=== PATIENT | male | born 1935 | race Caucasian/White ===

== ENCOUNTER 2019-06-21 20:31 | Inpatient (IN) | payer MEDICARE, BC, OTHER ==
[2019-06-21] MEDS ORDERED: Propofol 1,000 MG/100 ML VIAL IV ONE (22:48)
[2019-06-21] MEDS ORDERED: Acetaminophen 650 MG Suppository PR PRN (23:08)
[2019-06-21] MEDS ORDERED: Sodium Chloride 0.9% 1,000 ML IV SCH (23:30)
[2019-06-21 23:32] LABS: Actual Bicarbonate (HCO3a) 19.5 mEq/L (22-28); Base Excess (BEa) -4.3 mEq/L (-2.0 to +3.0); CO2 Tension 32.2 mmHg (35.0-45.0); Calcium, Ionized 1.18 mmol/L (1.12-1.30); Carboxyhemoglobin (COHb) 0.3 gm% (0.0-3.0); Hemoglobin (Hb) 14.8 g/dL (14.0-18.0); O2 Tension (PaO2) 361.3 mmHg (> 60.0); Potassium - ABG Lab 4.57 mmol/L (3.70-5.30)
[2019-06-21 23:35] LABS: Puncture Site RBR
[2019-06-22] MEDS ORDERED: Dextrose 5 %-0.45 % NaCl 1,000 ML IV SCH (00:15)
[2019-06-22] MEDS ORDERED: Lorazepam 2 MG/ML VIAL SLOW IVP PRN (00:43)
[2019-06-22] MEDS ORDERED: Morphine 2 MG/ML SYRINGE SLOW IVP PRN (00:43)
[2019-06-22] MEDS ORDERED: DISCONTINUE PREVIOUS NARCOTIC PAIN MEDICATIONS AND BENZODIAZEPINES FS SCH (00:43)
[2019-06-22] MEDS ORDERED: fentaNYL Citrate/PF 2,000 MCG in Sodium Chloride 0.9% 60 ML IV SCH (00:43)
[2019-06-22] MEDS ORDERED: Propofol BOLUS 1,000 MG/100 ML VIAL IV PRN (00:43)
[2019-06-22] MEDS ORDERED: Fentanyl BOLUS 250 ML IVPB PRN (00:43)
--- NOTE | 2019-06-22 00:48 | HP ---
CHIEF COMPLAINT: Respiratory failure. HISTORY OF PRESENT ILLNESS: Mr. Díaz is an 84-year-old male, who was brought to the emergency room with low oxygen saturation. Oxygen saturation was reported in the 70s. The patient was intubated, mechanically ventilated. The patient lives in custodial, where several patients have been tested positive for new coronavirus 2019. On workup in the emergency room, the patient was found to be in acute renal failure with a creatinine of more than 4, hyperkalemic, hypernatremic with a sodium of 158. CT was done without contrast, which shows bilateral ground-glass opacities, atypical/viral pneumonia cannot be excluded. Septic workup done. The patient is being admitted to the intensive care unit for further management. PAST MEDICAL HISTORY: 1. Hypertension. 2. Alzheimer dementia. 3. CVA. 4. Asthma. 5. Prostatic hypertrophy. 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 FAMILY HISTORY: Unknown. REVIEW OF SYSTEMS: Unable to obtain. The patient is intubated, mechanically ventilated. ALLERGIES: THE PATIENT IS ALLERGIC TO ACETAMINOPHEN, AMOXICILLIN, CIPRO, DONEPEZIL, HYDROCODONE, PENICILLIN, PHENYTOIN, AND QUINOLONES. PHYSICAL EXAMINATION: GENERAL: The patient is intubated, sedated. VITAL SIGNS: Blood pressure 100/60, temperature 96.2, heart rate is 102, respiratory rate is 20. HEAD AND NECK: Normocephalic, atraumatic. NECK: Supple. CHEST: Bilateral breath sounds. HEART: S1, S2. Regular. ABDOMEN: Soft. Bowel sounds present. NEURO: Intubated, sedated, unable to assess. EXTREMITIES: No clubbing or cyanosis. LABORATORY DATA: As mentioned above in the history of present illness. WBC count is 9.2. Potassium 5.7, sodium 158, AST 171, ALT 97. CT of the chest as mentioned above in history of present illness. CT of the brain, no acute finding. ASSESSMENT: 1. Acute hypoxic respiratory failure. 2. Pneumonia, suspected viral. 3. Acute renal failure. 4. Acute hypernatremia. 5. Acute hyperkalemia. 6. Alzheimer dementia. 7. History of hypertension. 8. History of cerebrovascular accident. PLAN: 1. Admit to ICU. 2. Continue full ventilator support. 3. Septic workup including viral panel was done in the ED. 4. Isolation precautions, contact and droplet. 5. IV fluid hydration. 6. Place an OG tube and start on free water. 7. Monitor kidney function and urine output. 8. Empiric IV antibiotics for now. 9. Business Process Representative/Pulmonary consulted for evaluation and further management. 10. Qi Specialist consulted for evaluation and further management. 11. GI and DVT prophylaxis as appropriate. 12. The patient's condition is critical. 13. The case discussed with patient's daughter on the phone. 14. The patient's condition is critical. 15. Expected length of stay, 3 midnights or more. Job ID: [id number]
[2019-06-22] MEDS ORDERED: Ventilator Sedation Protocol 1 EACH FS SCH (01:15)
[2019-06-22] MEDS ORDERED: cefTRIAXone\\ROCEPHIN 2 GM in Sodium Chloride 0.9% 100 ML IVPB SCH (02:00)
[2019-06-22] MEDS ORDERED: Sodium Chloride 0.9% 500 ML IVPB SCH (02:30)
[2019-06-22] MEDS: Azithromycin 500 MG in Sodium Chloride 0.9% 250 ML 250 ML IVPB SCH (02:31)
[2019-06-22 04:12] LABS: ALT (SGPT) 89 U/L (8-55); AST (SGOT) 256 U/L (5-34); Albumin 2.9 g/dL (3.4-4.8); Alkaline Phosphatase 88 U/L (40-110); Anion Gap 24 mmol/L (10-20); BUN (Urea Nitrogen) 81 mg/dL (8.4-25.7); Bilirubin, Total 0.3 mg/dL (0.2-1.2); Calc. Creatinine Clearance 13 mL/min (70-130); Calcium 8.6 mg/dL (7.8-10.44); Carbon Dioxide 21 mmol/L (23-31); Chloride 118 mmol/L (98-107); Estimated GFR-MDRD 16; Globulin 2.7 g/dL (2.4-3.5); Glucose 78 mg/dL (83-110); Potassium 4.5 mmol/L (3.5-5.1); Protein, Total 5.6 g/dL (5.8-8.1); Sodium 158 mmol/L (136-145)
[2019-06-22 04:28] LABS: Band 39 % (5-11); Hemoglobin 13.9 g/dL (14.0-18.0); Lymphocytes 11 % (21-51); MDiff Complete? YES; Mean Corpuscular HGB CONC 31.4 g/dL (32.0-36.0); Mean Platelet Volume 10.7 fL (7.4-10.4); Monocytes 2 % (0-10); Neutrophil 48 % (42-75); Platelet Count 145 thou/uL (130-400); RBC Distribution Width 14.3 % (11.5-14.5); Red Blood Cell (RBC) Count 4.33 mill/uL (4.70-6.10); White Blood Cell (WBC) Count 11.2 thou/uL (4.8-10.8)
[2019-06-22] MEDS ORDERED: Sodium Chloride 0.9% 1,000 ML IV SCH (05:45)
[2019-06-22 07:04] LABS: Actual Bicarbonate (HCO3a) 16.9 mEq/L (22-28); Base Excess (BEa) -4.9 mEq/L (-2.0 to +3.0); Calcium, Ionized 1.08 mmol/L (1.12-1.30); Carboxyhemoglobin (COHb) 0.3 gm% (0.0-3.0); Hemoglobin (Hb) 12.3 g/dL (14.0-18.0); O2 Tension (PaO2) 62.1 mmHg (> 60.0); Potassium - ABG Lab 3.78 mmol/L (3.70-5.30); pH, Arterial 7.48 (7.35-7.45)
[2019-06-22] MEDS ORDERED: Lactated Ringer's 1,000 ML IV SCH (08:45)
[2019-06-22] MEDS ORDERED: Vancomycin 1 GM in Premix Bag 1 BAG IVPB SCH (08:45)
--- NOTE | 2019-06-22 08:46 | PDOC.EVN ---
Event Note - Event Note Event Note: Inherited patient this morning. Intubated and sedated. Awaiting for official records from [place]. Review CT head and lungs with Dr. Graham. CT lung remarkable for mild left ground glass opacities and right lower lobe opacity, may be due to aspiration. Patient also has TU c/w with prerenal etiology, macrocytosis, AST/ALT>2; In context of aforementioned and dementia, working diagnosis aspiration pneumonia, possibly alcoholic hepatitis, though COVID not ruled out at this point, especially due to possible exposure in skilled nursing with known positive cases. #Aspiration pneumonia/pneumonitis #Acute hypoxic respiratory failure vancomycin and cefepime started, continue azithromycin for atypical coverage/ COVID (limited evidence) pending records from [place] #Dehydration #chronic Hypernatremia -providing hypotonic IVF -recheck BMP at noon; adjust rate to correct at 10meq/24hr to avoid overcorrection and cerebral edema / undercorrection in context of improving TU and changing water losses; if rate achieved can spread out sodium checks
[2019-06-22 09:00] LABS: CO2 Tension 23.1 mmHg (35.0-45.0); Puncture Site LRA
[2019-06-22] MEDS ORDERED: Heparin 5,000 UNITS/ML VIAL SC SCH (09:00)
[2019-06-22] MEDS ORDERED: Prevnar 13-Val Conj/PF 0.5 ML SYRINGE IM ONE (09:00)
[2019-06-22] MEDS ORDERED: FLU VACC TS2019-20(65YR UP)/PF 180 MCG/0.5 ML SYRINGE IM ONE (09:00)
[2019-06-22] MEDS ORDERED: Famotidine/PF 20 mg/2ml Vial SLOW IVP SCH (09:00)
[2019-06-22 09:01] LABS: ALV-art Gradient 194.225 (0-20)
[2019-06-22] MEDS ORDERED: methylPREDNISolone Sod Succ 40 MG VIAL IVP SCH (09:15)
[2019-06-22] MEDS: Dextrose 5% in Water 1,000 ML IV SCH (09:42)
[2019-06-22] MEDS: methylPREDNISolone Sod Succ 40 MG VIAL IVP SCH (09:43)
[2019-06-22] MEDS: Cefepime 1 GM in Sodium Chloride 0.9% 100 ML IVPB SCH (09:43)
[2019-06-22] MEDS: Heparin 5,000 UNITS/ML VIAL SC SCH ×2 (09:44→21:29)
[2019-06-22] MEDS: Famotidine/PF 20 mg/2ml Vial SLOW IVP SCH (09:44)
[2019-06-22 11:21] LABS: Bilirubin Negative (Negative); Blood, Urine 3+ (Negative); Clarity Extra Turbid (Clear); Glucose, Urine (Dipstick) 30 mg/dL (Negative); Leukocyte 250 Leu/uL (Negative); Nitrite Negative (Negative); Protein, Urine (Dipstick) 200 mg/dL (Neg-Trace); Squamous Epithelial 0-3 HPF (0-3); Urobilinogen Normal mg/dL (Less than 2); WBC/HPF Greater than 50 HPF (0-3)
[2019-06-22 11:25] LABS: Bacteria/HPF 2+ HPF (None Seen)
[2019-06-22 11:28] LABS: Legionella Urinary Ag Negative (Negative); Strep pneumo Urine Ag NEGATIVE (NEGATIVE)
[2019-06-22 11:57] LABS: Creatinine, Urine 232.42 mg/dL (63-166)
--- NOTE | 2019-06-22 15:49 | CON ---
DATE OF CONSULTATION: SERVICE: Renal Medicine. HISTORY OF PRESENT ILLNESS: Mr. Díaz is an 84-year-old halfway patient/assisted living patient, who was admitted for an acute respiratory failure. He was noted to be hypoxemic and currently on ventilator support. He was admitted with a possible atypical/viral pneumonia. Workup is currently being done. He is being ruled out for Coronavirus infection. Please note, a CT scan of the chest without contrast was done, which showed bilateral ground-glass opacities. We are now being consulted for his acute kidney injury. The initial creatinine at [facility] showed an elevated creatinine of more than 4. Repeat creatinine today showed it was slightly improved at 3.6. He is currently receiving IV hydration. We are here for further evaluation of this acute kidney injury. REVIEW OF SYSTEMS: Not obtainable except based on the history. The patient has been febrile and has been having cough. He has a history of exposure to some people in the halfway, who are diagnosed with COVID-19. PAST MEDICAL HISTORY: Includes dementia, status post multi-infarct dementia, asthma, BPH, hypertension, hyperlipidemia, ? of seizure disorder, status post TIA, CAD, history of anxiety, history of CHF from diastolic dysfunction, status post pneumonia. PAST SURGICAL HISTORY: Status post back surgery, status post EPIC RADIANT ANALYST shunt placement, status post nasal surgery, status post vasectomy, status post prostate biopsy, and status post tonsillectomy. FAMILY HISTORY: Positive for family history of dementia. Breast cancer, mother. One sister with asthma. SOCIAL HISTORY: Currently, no smoking. No ethanol use. No IV drug use. ALLERGIES: INCLUDE: 1. ACETAMINOPHEN. 2. AMOXICILLIN. 3. CIPRO. 4. DONEPEZIL. 5. HYDROCODONE. 6. PENICILLIN. TRAUMA: None. IMMUNIZATION: Up-to-date. HOSPITALIZATIONS: Please see past medical history. PHYSICAL EXAMINATION: VITAL SIGNS: Blood pressure 125/76, heart rate 92, respiratory rate 21, O2 saturation 100%. GENERAL: Noted to be sedated and intubated on ventilator support. SKIN: Adequate turgor. HEENT: He has had pinkish conjunctivae. Anicteric sclerae. NECK: No neck mass. No carotid bruits. No JVD. CHEST: No deformities. LUNGS: Clear. Decreased breath sounds. HEART: Normal sinus rhythm. No murmur. No gallops. No rubs. ABDOMEN: Globular, soft, and nontender. No masses. EXTREMITIES: No edema. No deformities. NEUROLOGIC: Sedated and intubated on ventilator support. MEDICATIONS: 1. Cefepime 1 g IV daily. 2. Dextrose - D5 water at 100 mL/hour. 3. Famotidine 20 mg IV daily. 4. Heparin 5000 units subcutaneously b.i.d. 5. Methylprednisolone 20 mg IV daily. 6. Propofol drip. 7. Status post vancomycin. Currently, on hold. LABORATORY DATA: Laboratories of June 22, 2019: White count 11.2, hemoglobin 13.9. Sodium 158, potassium 4.5, chloride 118, carbon dioxide 21, BUN 81, creatinine 3.64, glucose 78, calcium is 8.6, AST 256, ALT 89, albumin 2.9. Urinalysis; urine sodium 39, urine creatinine 232, specific gravity 1.024, protein is 200, rbc 11 to 20, wbc greater than 50, granular cast [address] scan of the chest showed ground-glass opacities. ASSESSMENT AND PLAN: 1. Acute kidney injury - initially, it was felt that this is a hemodynamically-mediated renal dysfunction. He did have some improvement with volume repletion. However, the concern is that the urine sediment was fairly active showing numerous pigmented granular casts suggesting an acute tubular necrosis with this patient. Management is essentially supportive. Continue IV hydration as long as he will tolerate it. If the renal function will further worsen or he goes to volume overload, we may need to initiate hemodialysis. However, due to his comorbid problems and history of dementia, this patient might not be an ideal candidate for dialytic intervention. We will discuss this with the daughter. 2. Sepsis/pneumonia - on empiric IV antibiotics. Serological workup for the Coronavirus has been done. Influenza has been reported as negative. Legionella has also been ruled out. 3. Hematuria/granular cast. We will also rule out for any possibility of acute vasculitis with this patient. WILLIE and ANCA have also been ordered. Overall, prognosis with this patient due to his advanced age and multiple comorbid problems is quite poor. Overall, agree with current management. Job ID: [id number]
--- NOTE | 2019-06-22 16:10 | CON ---
DATE OF CONSULTATION: 06/22/2019 SERVICE: Pulmonary Medicine. REASON FOR CONSULTATION: ICU patient. HISTORY OF PRESENT ILLNESS: The patient is an 84-year-old male with past medical history significant for dementia and LAWN CARETAKER shunt. Ultimately, his [facility] had an outbreak of COVID. It is my understanding that he is across the door from the index case there that already earlier this week. Either way, it appears that he is poorly interactive and perhaps even bedbound. He presents to the hospital with altered mentation. He was intubated, though he did not have significant hypoxic respiratory failure. He cannot provide any additional elements of the history at this point. He was obtunded from the time presentation, so we have no presenting illness. 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 2. Hypertension. 3. History of CVA. 4. Asthma versus COPD. 5. Benign prostate hyperplasia. PAST SURGICAL HISTORY: LAWN CARETAKER shunt. FAMILY HISTORY: Unknown. SOCIAL HISTORY: Negative for current alcohol, tobacco, or illicit drug use. It does not appear that the patient has very good functional status. REVIEW OF SYSTEMS: Unobtainable. ALLERGIES: ACETAMINOPHEN, AMOXICILLIN, DONEPEZIL, CIPRO, HYDROCODONE, PENICILLIN, PHENYTOIN, AND QUINOLONES. MEDICATIONS: His inpatient medications were reviewed. Multiple updates were made at this time. PHYSICAL EXAMINATION: VITAL SIGNS: Afebrile. Pulse rate 89, blood pressure 120/81, respirations are 22, saturation 100%, currently on 30% FiO2 and a PEEP of 5. GENERAL: The patient is intubated and sedated. HEENT: Normocephalic and atraumatic. Sclerae white. Conjunctivae pink. Oral mucosa is moist without lesions. LUNGS: Good air entry bilaterally. There is a slightly prolonged expiratory phase. I do not hear any crackles or wheezing present. HEART: Normal rate, regular. ABDOMEN: Soft, nontender, and nondistended. Bowel sounds are positive. MUSCULOSKELETAL: No cyanosis or clubbing. There is no pitting. Skin tenting is present throughout. NEUROLOGIC: Grossly nonfocal. He does demonstrate a coarse tremor. This is active contraction in a rotary fashion. LABORATORY DATA: WBC 11.2, hemoglobin 13.9, and platelets are 145,000. Band count is 39% on top of 48% neutrophils. PH 7.48, pCO2 of 23, PO2 of 62 corresponding to a saturation 91% while wearing 40% FiO2 and PEEP of 5. Sodium 158, chloride 118, bicarb 21. Anion gap 24, creatinine 3.64. AST and ALT are elevated. It is my understanding that creatinine and LFTs are downtrending. Bacteria 2+ with positive leukocyte esterase. Nitrites were positive at outside Hospital. Urine is positive for 3+ blood. Legionella and strep pneumoniae antigens are unremarkable. ASSESSMENT: 1. Severe sepsis. 2. Profound dehydration. 3. Acute kidney injury. 4. Status full urinary tract infection. 5. Healthcare acquired pneumonia. 6. COVID exposure. ASSESSMENT: The patient's COVID was unremarkable at the outside hospital. He does not have any infiltrates on the CT scan. I believe that would happen if the patient had significant dehydration that developed and he had lack of access to nutrition and water. He has already received 2 L of fluid. His blood pressures are now marginal. If he needs an additional L, it will be provided. His free water deficit is over 4 L. He does not have an NG tube or an OG tube currently. We will provide him with a D5 water at 100 mL/h. Hopefully over the next 24 to 48 hours, we will get closer to our goal of 140. Antibiotics will be broadened out to cover for healthcare acquired organisms. Now that the COVID is negative, azithromycin will be interrupted. The urine cultures are currently pending, as are two blood cultures from outside hospital. Hopefully, we will be able to liberate him from mechanical ventilation once his mentation allows. Critical Care will follow. CRITICAL CARE TIME: 30 minutes. Job ID: [id number]
[2019-06-22] MEDS: Albumin 25% 25 GM/100 ML BOT IVPB SCH (16:57)
[2019-06-22] MEDS: Propofol 1,000 MG/100 ML VIAL IV PRN (16:57)
[2019-06-22] MEDS ORDERED: Dextrose 5% in Water 1,000 ML IV PRN (22:16)
[2019-06-23] MEDS: Azithromycin 500 MG in Sodium Chloride 0.9% 250 ML 250 ML IVPB SCH ×2 (00:01→20:19)
[2019-06-23] MEDS: Albumin 25% 25 GM/100 ML BOT IVPB SCH ×5 (00:01→22:02)
[2019-06-23] MEDS: Dextrose 5% in Water 1,000 ML IV SCH (00:02)
[2019-06-23 04:00] LABS: CRP (Inflammatory) 22.45 mg/dL (= or < 0.5); Magnesium 3.1 mg/dL (1.6-2.6); Phosphorus 3.5 mg/dL (2.3-4.7)
[2019-06-23 04:16] LABS: Band 38 % (5-11); Hemoglobin 11.5 g/dL (14.0-18.0); Lymphocytes 10 % (21-51); MDiff Complete? YES; Mean Corpuscular HGB CONC 33.3 g/dL (32.0-36.0); Mean Platelet Volume 11.5 fL (7.4-10.4); Metamyelocyte 1 % (0-0); Neutrophil 51 % (42-75); Platelet Count 95 thou/uL (130-400); Platelet Morphology Comment Appears Decreased; RBC Distribution Width 14.3 % (11.5-14.5); White Blood Cell (WBC) Count 14.8 thou/uL (4.8-10.8)
[2019-06-23] MEDS: Propofol 1,000 MG/100 ML VIAL IV PRN (05:14)
[2019-06-23 06:59] LABS: ALT (SGPT) 106 U/L (8-55); AST (SGOT) 258 U/L (5-34); Albumin 3.5 g/dL (3.4-4.8); Alkaline Phosphatase 69 U/L (40-110); Anion Gap 23 mmol/L (10-20); BUN (Urea Nitrogen) 83 mg/dL (8.4-25.7); Bilirubin, Total 0.4 mg/dL (0.2-1.2); Calc. Creatinine Clearance 13 mL/min (70-130); Calcium 7.8 mg/dL (7.8-10.44); Carbon Dioxide 15 mmol/L (23-31); Chloride 118 mmol/L (98-107); Estimated GFR-MDRD 16; Globulin 2.2 g/dL (2.4-3.5); Glucose 109 mg/dL (83-110); Potassium 3.9 mmol/L (3.5-5.1); Protein, Total 5.7 g/dL (5.8-8.1); Sodium 152 mmol/L (136-145)
--- NOTE | 2019-06-23 07:27 | OP ---
DATE OF PROCEDURE: 06/22/2019 Emergency re-intubation busted, endotracheal tube cuff leaked. The patient is in a COVID-19 precaution. Full body protection was used, goggles, mask, and outerwear. The flexible Ambu disposable bronchoscope was used with a 7.5 endotracheal tube placed about it. A bite block was placed in. Back of the throat was suctioned and lavaged until clear. There was some relatively large amount of thick secretions. The old endotracheal tube was removed. The #7.5 new tube was placed above the vocal cords, well above the malou. The patient was bagged. Cuff was inflated. The area was reinspected again and there was no endobronchial disease or blood or pus seen. The patient was connected to volume-cycled respirator. Job ID: [id number]
--- NOTE | 2019-06-23 07:50 | PDOC.HOSPP ---
- Subjective Encounter Date: 06/23/19 Encounter Time: 07:30 Subjective: Overnight, confirmed to be COVID positive. This morning, ventilating well on CPAP but remains poorly responsive per ICU. Will attempt to extubate if responsiveness improves otherwise obtain EEG. - Objective Vital Signs & Weight: Vital Signs (12 hours) Temp Pulse Resp Pulse Ox 06/23/19 07:39 111 H 06/23/19 06:00 20 06/23/19 04:00 99.2 F 21 H 06/23/19 02:00 21 H 06/23/19 01:47 79 06/23/19 00:00 99.5 F 20 06/22/19 22:19 89 06/22/19 22:00 20 06/22/19 20:00 99.5 F 22 H 100 Weight Admit Weight 136 lb Weight 136 lb 3.931 oz Most Recent Monitor Data Heart Rate from ECG 75 NIBP 152/89 NIBP BP-Mean 110 Respiration from ECG 20 SpO2 100 I&O: 06/22/19 06/23/19 06/24/19 06:59 06:59 06:59 Intake Total 2224 2818.8 Output Total 308 2280 Balance 1916 538.8 Result Diagrams: 06/23/19 03:35 06/23/19 03:34 Additional Labs: Accuchecks 06/23/19 05:28 POC Glucose 79 Hospitalist ROS - Review of Systems ROS unobtainable: due to mental status (intubated and sedated) - Medication Medications: Active Medications Generic Name Dose Route Start Last Admin Trade Name Freq PRN Reason Stop Dose Admin Famotidine 20 mg 06/22/19 09:00 06/22/19 09:44 Pepcid SLOW IVP 20 mg DAILY WENDI Administration Heparin Sodium (Porcine) 5,000 units 06/22/19 09:00 06/22/19 21:29 Heparin SC 5,000 units BID WENDI Administration Azithromycin 500 mg/ Sodium 250 mls @ 250 mls/hr 06/22/19 01:00 06/23/19 00: 01 Chloride IVPB 250 mls 0100 WENDI Administration Cefepime HCl 1 gm/ Sodium 100 mls @ 200 mls/hr 06/22/19 10:00 06/22/19 09:43 Chloride IVPB 100 mls 1000 WENDI Administration Methylprednisolone Sodium Succinate 20 mg 06/23/19 09:00 06/22/19 09:43 Solu-Medrol IVP 20 mg DAILY WENDI Administration Propofol 1,000 mg 06/22/19 00:43 06/23/19 05:14 Diprivan IV 07/22/19 00:43 1,000 mg INF PRN Administration TO ACHIEVE GOAL RASS Protocol - Exam General - other findings: sedated Eye: PERRL, anicteric sclera ENT: normocephalic atraumatic Neck: no JVD Heart: RRR, no murmur, no gallops, no rubs, normal peripheral pulses Respiratory: CTAB, no wheezes, no rales, no ronchi, normal chest expansion Respiratory - other findings: on CPAP 5 Gastrointestinal: soft, non-tender, non-distended, normal bowel sounds Extremities: no edema Psychiatric - other findings: sedated Hosp A/P - Plan #COVID pneumonia #aspiration pneumonia -inflammatory markers grossly elevated; procalcitonin elevated. more c/w bacterial pneumonia however superimposed COVID likely considering positive test and ground glass opacities with bibasilar airspace disease, which is commonly found in COVID and other viral pneumonias -started hydroxychloroquine and azithromycin as per MICU -continue cefepime and vancomcyin; will discuss adding clindamycin for anaerobic coverage with ICU -daily SBTs #TU -ATN based on urine studies; likely due to sepsis -nephrology onboard -continue strict I/O, IVF supplementation #dehydration #chronic hypernatremia -improving, currently 152 -continue IVF and daily BMP remaining management unchanged Poor prognosis; Palliative team and ICU discussed with family.
--- NOTE | 2019-06-23 07:52 | PRG ---
DATE OF SERVICE: 06/23/2019 SERVICE: Pulmonary Medicine. INTERVAL HISTORY: The patient is doing fine overnight from respiratory standpoint. He has been weaned down to room air. Otherwise, there has been no interval change to his condition. He cannot provide any additional elements of the history. Currently, he is on sedation. That being said, he continues to be poorly responsive. With noxious stimuli to the left upper extremity, he seems to grimace. Outside of that, he has some upper motor neuron signs. PHYSICAL EXAMINATION: VITAL SIGNS: Afebrile, pulse 75, blood pressure 152/89, respirations 20, and saturation 100%, currently on 21% FiO2 delivered via ventilator with a PEEP of 5. GENERAL: The patient is intubated and sedated. HEENT: Normocephalic and atraumatic. Sclerae white. Conjunctivae pink. Oral mucosa is moist without lesions. LUNGS: Decent air entry. There is a slightly prolonged expiratory phase, but I do not hear any crackle or wheezing present. HEART: Normal rate, regular. ABDOMEN: Soft, nontender, and nondistended. Bowel sounds are positive. MUSCULOSKELETAL: No cyanosis or clubbing. There is no pitting in the bilateral lower extremities. NEUROLOGIC: Grossly nonfocal. LABORATORY DATA: WBC 14.8, hemoglobin 11.5, platelets 95,000 and downtrending. Neutrophil count is 51% on top of 38% bands. PH 7.48, pCO2 of 23, pO2 is 62, corresponding to saturation 91%. Sodium is gently downtrending to 152. Chloride 118, anion gap 23. Creatinine is gently up-trending to 3.73, BUN 83. AST and ALT are gently up-trending. CRP, ferritin, and procalcitonin are all elevated. The procalcitonin has significantly elevated to 31. Urinalysis is positive for pyuria. Legionella and strep urine antigens are unremarkable. I have verbal report that the COVID is in fact positive. ASSESSMENT: 1. Severe sepsis. 2. Profound dehydration. 3. Acute kidney injury, improving. 4. Urinary tract infection, suspected. 5. Healthcare-acquired pneumonia in the right lower lobe. 6. COVID positive. DISCUSSION AND PLAN: This patient remains on 21% FiO2. He never had a COVID related infiltrate. As such, I believe the reason that he is intubated is because primarily of a metabolic, and encephalopathic issue associated with his profound dehydration, acute kidney injury, and severe sepsis. Procalcitonin being positive would suggest that he has a true bacterial infection. We will continue our empiric antibiotics but we will go ahead and add medication for COVID exposures given his advanced age. I will repeat a chest x-ray and ABG tomorrow morning. I will give him a sedation holiday. If he meets criteria, extubation will be considered today. If he fails to wake up, an EEG will need to be considered. Critical Care will follow. Critical care time: 30 minutes. Job ID: [id number] MTDD
[2019-06-23] MEDS: Dextrose 5 %-0.45 % NaCl 1,000 ML IV SCH ×2 (08:11→17:33)
[2019-06-23] MEDS: Famotidine/PF 20 mg/2ml Vial SLOW IVP SCH (08:26)
[2019-06-23] MEDS: Heparin 5,000 UNITS/ML VIAL SC SCH ×2 (08:26→20:19)
[2019-06-23] MEDS: Cefepime 1 GM in Sodium Chloride 0.9% 100 ML IVPB SCH ×2 (08:26→10:25)
[2019-06-23] MEDS: methylPREDNISolone Sod Succ 40 MG VIAL IVP SCH (08:27)
[2019-06-23] MEDS ORDERED: Vancomycin 1 GM in Premix Bag 1 BAG IVPB SCH (09:00)
[2019-06-23] MEDS ORDERED: Hydroxychloroquine Sulfate 200 MG TAB PO SCH (09:00)
--- NOTE | 2019-06-23 09:06 | RAD ---
EXAM: XR Chest 1 View Portable PROVIDED CLINICAL HISTORY: Respiratory insufficiency COMPARISON: 05/12/2003 FINDINGS: Cardiac and mediastinal silhouette is within normal limits. Endotracheal tube is noted, tip of which terminates approximately 2.5 cm cranial to malou. No pleural fluid or pneumothorax. Catheter overlies the right hemithorax and right neck of uncertain etiology. There is patchy suspected airspac e disease involving both lower lung zones. IMPRESSION: Patchy bibasilar airspace disease, subsegmental atelectasis versus pneumonia.
[2019-06-23 09:37] LABS: Vancomycin, Random 12.3 ug/mL (See Comment)
--- NOTE | 2019-06-23 10:16 | PRG ---
DATE OF SERVICE: 06/23/2019 SUBJECTIVE: Mr. Díaz is an 84-year-old white male, who was initially admitted for pneumonia/sepsis. He was checked for COVID-19 and it was positive. His blood cultures have been negative. In addition, he had a Strep pneumoniae antigen which was negative as well as for Legionella pneumophila which was negative. He was said to be positive for COVID-19. We are seeing him for his acute kidney injury. Review of his urine sediment did suggest he may have a superimposed acute tubular necrosis. Currently, we are trying to optimize his hemodynamics. He is still intubated on a CPAP. OBJECTIVE: VITAL SIGNS: Blood pressure 159/87, heart rate 104, respiratory rate 25, and pulse ox 100%. GENERAL: He is noted to be sedated and intubated on CPAP. HEENT: He has pinkish conjunctivae. Anicteric sclerae. NECK: No neck mass. No carotid bruits. No JVD. CHEST: No deformities. LUNGS: Decreased breath sounds. HEART: Normal sinus rhythm. No murmur. No gallops. No rubs. ABDOMEN: Globular, soft, and nontender. No masses. EXTREMITIES: No edema. No deformities. MEDICATIONS: Medications of June 23, 2019, were reviewed. LABORATORY DATA: June 23, 2019; white count 14.8, hemoglobin 11.5, sodium 152, potassium 3.9, chloride 118, carbon dioxide 15, BUN 83, creatinine 2.73, AST 258 , ALT 106, and albumin 3.5. ASSESSMENT AND PLAN: 1. Acute kidney injury - this is secondary to superimposed acute tubular necrosis. Urine sediment showed numerous pigmented granular casts. Management is supportive. At the same time, continue to optimize hemodynamics. We will continue albumin infusion 25 g IV q.6. There is no indication for any emergent hemodialysis with this patient. 2. COVID infection/pneumonia. Currently on IV antibiotics as well as on hydroxychloroquine. Continue supportive care. 3. From a pulmonary point of view, the patient is stable. They are able to wean off the vent with this patient. He is currently on CPAP. We will discuss with the daughter regarding if they want to pursue dialysis if this situation should arise. Please note, he is of advanced age and has other multiple comorbid problems and my bias is to probably not offer dialysis if this comes to this point. But however , this will be decided after discussing this with the daughter. Please note, this patient has also known history of dementia. 4. Overall prognosis remains guarded. Job ID: [id number] [facility]
[2019-06-23] MEDS: SIMPLE PER TUBE SCH ×2 (10:25→20:20)
[2019-06-23] MEDS: HYDROXYCHLOROQUINE SULFATE 400 MG PER TUBE SCH ×2 (10:25→20:20)
[2019-06-23] MEDS ORDERED: Vancomycin HCl 1.25 GM in Sodium Chloride 0.9% 250 ML 250 ML IVPB SCH (11:00)
[2019-06-23] MEDS: Vancomycin HCl 1.25 GM in Sodium Chloride 0.9% 250 ML 250 ML IVPB SCH (21:28)
[2019-06-24] MEDS: Dextrose 50% Abboject 50 ML SYRINGE SLOW IVP PRN (00:03)
[2019-06-24] MEDS: Propofol 1,000 MG/100 ML VIAL IV PRN (00:53)
[2019-06-24] MEDS: Dextrose 5 %-0.45 % NaCl 1,000 ML IV SCH ×4 (00:53→19:24)
[2019-06-24 04:40] LABS: ALT (SGPT) 244 U/L (8-55); AST (SGOT) 340 U/L (5-34); Albumin 4.2 g/dL (3.4-4.8); Alkaline Phosphatase 77 U/L (40-110); Anion Gap 22 mmol/L (10-20); BUN (Urea Nitrogen) 57 mg/dL (8.4-25.7); Bilirubin, Total 0.7 mg/dL (0.2-1.2); Calc. Creatinine Clearance 19 mL/min (70-130); Calcium 8.4 mg/dL (7.8-10.44); Carbon Dioxide 21 mmol/L (23-31); Chloride 110 mmol/L (98-107); Estimated GFR-MDRD 24; Globulin 3.1 g/dL (2.4-3.5); Glucose 91 mg/dL (83-110); Potassium 3.6 mmol/L (3.5-5.1); Protein, Total 7.3 g/dL (5.8-8.1); Sodium 149 mmol/L (136-145)
[2019-06-24] MEDS: Albumin 25% 25 GM/100 ML BOT IVPB SCH ×4 (05:14→20:54)
[2019-06-24 05:16] LABS: Band 31 % (5-11); Hemoglobin 12.5 g/dL (14.0-18.0); Lymphocytes 4 % (21-51); MDiff Complete? YES; Mean Corpuscular HGB CONC 32.8 g/dL (32.0-36.0); Mean Corpuscular Hemoglobin 32.2 pg (27.0-31.0); Monocytes 1 % (0-10); Neutrophil 64 % (42-75); Nucleated RBC 1 % (0); Platelet Count 34 thou/uL (130-400); Platelet Morphology Comment Appears Decreased; RBC Distribution Width 14.2 % (11.5-14.5); Red Blood Cell (RBC) Count 3.89 mill/uL (4.70-6.10); White Blood Cell (WBC) Count 15.5 thou/uL (4.8-10.8)
--- NOTE | 2019-06-24 08:10 | RAD ---
CHEST 1 VIEW: DATE: 06/24/2019 INDICATION: On respirator. COMPARISON: Prior exam dated 06/23/2019. FINDINGS: Worsening air space disease of the right lower lobe, left mid lung, and left lower lobe. The patient is intubated with ET tube tip seen approximately 1.6 cm above the level of the malou. There is a shadia triculoperitoneal catheter overlying the right chest wall. No pneumothorax is evident. IMPRESSION: Worsening bilateral air space disease. POS: BH
[2019-06-24] MEDS: Heparin 5,000 UNITS/ML VIAL SC SCH ×2 (08:22→21:36)
[2019-06-24] MEDS: Cefepime 1 GM in Sodium Chloride 0.9% 100 ML IVPB SCH (08:23)
[2019-06-24] MEDS: Famotidine/PF 20 mg/2ml Vial SLOW IVP SCH (08:24)
[2019-06-24] MEDS: methylPREDNISolone Sod Succ 40 MG VIAL IVP SCH (08:24)
[2019-06-24] MEDS: SIMPLE PO SCH ×2 (09:08→20:59)
[2019-06-24] MEDS: HYDROXYCHLOROQUINE SULFATE 200 MG PO SCH ×2 (09:08→20:59)
[2019-06-24] MEDS ORDERED: Albumin 25% 25 GM/100 ML BOT IVPB ONE (09:45)
--- NOTE | 2019-06-24 10:20 | PRG ---
DATE OF SERVICE: 06/24/2019 SUBJECTIVE: Mr. Díaz is an 84-year-old white male, who was admitted for acute respiratory failure. He was noted to be positive for COVID-19. We are seeing him for his acute kidney injury. Review of the Renal Service suggested acute tubular necrosis. Of interest, he is diuresing well. No acute events noted last time. His chest x-ray showed worsening infiltrates. OBJECTIVE: VITAL SIGNS: Blood pressure is 141/96, heart rate 96, respiratory rate is 24, and O2 saturation 98%. GENERAL: He is noted to be sedated, still intubated. MEDICATIONS: Medications of June 24, 2019, was reviewed. DIAGNOSTIC STUDIES: LABORATORY RESULTS: Laboratories of June 24, 2019; white count 15.5, hemoglobin 12.5. Sodium 149, potassium 3.6, chloride 110, carbon dioxide 21, BUN 57, creatinine 2.57. GFR is 24 mL/minute. Calcium 8.4, AST 340, ALT 244, and albumin 4.2. ASSESSMENT/PLAN: 1. Acute kidney injury-this is most likely a nonoliguric acute tubular necrosis. Please note in the last 24 hours, he made a urine output of about 5.5 L. We will continue current gentle volume repletion. In addition, albumin infusion 25 g IV q.6h will be extended for another day. 2. Mild hypernatremia, slowly improving with half-normal saline. Continue current management. 3. Positive COVID-currently on azithromycin and hydroxychloroquine. 4. Pneumonia/acute respiratory distress syndrome-the patient currently on IV antibiotics and supportive care. He was placed back on the ventilator support. Overall, prognosis remains poor. My bias should he need dialysis, not to consider it due to his multiple comorbid problems. His history suggests that he may have an underlying dementia. We will discuss this at length with the family. Please note that there is no indication for any dialytic intervention with this patient. Overall, agree with current management. Job ID: [id number]
[2019-06-24 11:36] LABS: ANA Symphony (Qualitative) Negative (Negative); ANA Symphony (Quantitative) 0.1 Ratio (< 0.7 Negative); dsDNA IgG Antibody Less than 0.5 IU/mL (<10 Negative)
--- NOTE | 2019-06-24 14:35 | PRG ---
DATE OF SERVICE: 06/24/2019 SUBJECTIVE: Mr. Díaz remains respiratory rates in the 20s, heart rates in the 90s, blood pressure 123/88. Family decided to make him a DNR after a long discussion that I had with the son today. Apparently, Mr. Díaz has been almost completely bedridden for quite sometime. He is occasionally in a wheelchair, but is certainly not functional. I have explained that even though he is COVID screened positive, he does not have a COVID pneumonia. His extreme dehydration was related to his dementia since the need for maintaining p.o. liquid intake, that led to his admission and hypotension. All of his cultures are negative so far. Lungs, heart, and abdomen are unchanged. White count 15.5, hemoglobin 12.5, platelets 34,000. Sodium 149, potassium 3.6, chloride 110, bicarb 21, BUN 57, creatinine 2.57. I have explained to him that his renal functions are improving. Independent of that even if we continue with hydration, he remains encephalopathic. He had a steroid responsive encephalopathy several years back, but he does remain encephalopathic in spite of IV steroids this admission. Given his poor functional status, dementia, and bedridden state, continue aggressively. I do not think it is in his best interest, but I am deferring to family. I am told that family is contemplating withdrawal of care in the morning. CRITICAL CARE TIME: 30 minutes. Job ID: [id number]
--- NOTE | 2019-06-24 14:51 | PDOC.EVN ---
Event Note - Event Note Event Note: Did not attend to patient this morning in order to minimize excessive exposure and risk. Dr. Hale saw the patient earlier in the day. No significant clinical improvement. Though ventilating well, remains unresponsive during sedation vacation. Per family, had previous episode of encephalopathy that was responsive to steroids, therefore administration of steroids despite COVID. CXR showing worsening RLL consolidation. Considering poor baseline function for years, dementia, being bed bound, acute COVID pneumonia, ATN, and unresponsiveness, agree that aggressive measures may not be in patient's best interest. Pending family decision regarding possible withdrawal of care. Meanwhile will continue current management.
[2019-06-24 15:13] LABS: Cytoplasmic (C-ANCA) <1:20 titer (Neg:<1:20); Myeloperoxidase AutoAbs <9.0 U/mL (0.0-9.0); Perinuclear (P-ANCA) <1:20 titer (Neg:<1:20); Proteinase-3 AutoAbs Less than 3.5 U/mL (0.0-3.5)
[2019-06-24] MEDS: Azithromycin 500 MG in Sodium Chloride 0.9% 250 ML 250 ML IVPB SCH (19:27)
[2019-06-24] MEDS ORDERED: Clopidogrel Bisulfate 75 MG TAB ONE (21:17)
--- NOTE | 2019-06-24 21:37 | PDOC.EVN ---
Event Note - Event Note Event Note: Notified by RN, patient with platelets of 34 with morning labs this AM. Patient received heparin this morning, day team unaware of platelets. Heparin to be discontinued, SCDs ordered. Recheck heparin in AM. Plan as per discussion with Dr. Wells.
[2019-06-24 21:43] LABS: Vancomycin, Random 14.3 ug/mL (See Comment)
[2019-06-24] MEDS: Vancomycin HCl 1.25 GM in Sodium Chloride 0.9% 250 ML 250 ML IVPB SCH (22:01)
[2019-06-24] MEDS ORDERED: Clindamycin/D5W 600 MG in Premix Bag 1 BAG IVPB SCH (22:30)
[2019-06-25] MEDS: Albumin 25% 25 GM/100 ML BOT IVPB SCH (04:05)
[2019-06-25] MEDS: Clindamycin/D5W 600 MG in Premix Bag 1 BAG IVPB SCH ×3 (05:19→21:17)
[2019-06-25 05:24] LABS: Band 18 % (5-11); Hemoglobin 11.2 g/dL (14.0-18.0); Lymphocytes 4 % (21-51); MDiff Complete? YES; Mean Corpuscular HGB CONC 33.5 g/dL (32.0-36.0); Mean Corpuscular Hemoglobin 32.3 pg (27.0-31.0); Mean Corpuscular Volume 96.5 fL (78.0-98.0); Monocytes 2 % (0-10); Myelocyte 1 % (0-0); Neutrophil 75 % (42-75); Platelet Count 99 thou/uL (130-400); Platelet Morphology Comment Appears Decreased; RBC Distribution Width 13.7 % (11.5-14.5); Red Blood Cell (RBC) Count 3.47 mill/uL (4.70-6.10); White Blood Cell (WBC) Count 10.4 thou/uL (4.8-10.8)
[2019-06-25 05:37] LABS: Anion Gap 17 mmol/L (10-20); BUN (Urea Nitrogen) 43 mg/dL (8.4-25.7); Calc. Creatinine Clearance 28 mL/min (70-130); Calcium 8.8 mg/dL (7.8-10.44); Carbon Dioxide 25 mmol/L (23-31); Chloride 107 mmol/L (98-107); Estimated GFR-MDRD 37; Glucose 124 mg/dL (83-110); Magnesium 2.4 mg/dL (1.6-2.6); Potassium 3.3 mmol/L (3.5-5.1); Sodium 146 mmol/L (136-145)
--- NOTE | 2019-06-25 08:16 | PDOC.HOSPP ---
- Subjective Encounter Date: 06/25/19 Encounter Time: 08:00 Subjective: no overnight events. This morning, alert, following commands, squeezing finger. - Objective Vital Signs & Weight: Vital Signs (12 hours) Temp Pulse Resp 06/25/19 08:07 81 06/25/19 06:00 30 H 06/25/19 04:00 98.0 F 22 H 06/25/19 02:39 70 06/25/19 02:00 24 H 06/25/19 00:41 100 06/25/19 00:00 98.5 F 23 H 06/24/19 22:20 118 H 06/24/19 22:00 98.5 F 24 H Weight Admit Weight 136 lb Weight 140 lb 14.006 oz Most Recent Monitor Data Heart Rate from ECG 103 NIBP 175/105 NIBP BP-Mean 128 Respiration from ECG 31 SpO2 96 I&O: 06/24/19 06/25/19 06/26/19 06:59 06:59 06:59 Intake Total 2838.0 3819 Output Total 5765 4060 Balance -2927.0 -241 Result Diagrams: 06/25/19 04:10 06/25/19 04:10 Additional Labs: Accuchecks 06/25/19 06/24/19 06/24/19 04:16 23:58 21:11 POC Glucose 128 H 68 L 108 06/24/19 06/24/19 06/24/19 19:46 16:09 11:18 POC Glucose 68 L 124 H 87 06/24/19 08:37 POC Glucose 97 Hospitalist ROS - Review of Systems ROS unobtainable: due to endotracheal tube - Medication Medications: Active Medications Generic Name Dose Route Start Last Admin Trade Name Freq PRN Reason Stop Dose Admin Hydroxychloroquine Sulfate 200 0 mg 06/24/19 09:00 06/24/19 20:59 mg/ Simple Syrup 8 ml PO 06/27/19 21:01 Not Given BID WENDI Dextrose/Water 25 gm 06/22/19 22:16 06/24/19 00:03 Dextrose 50% SLOW IVP 25 gm PRN PRN Administration Hypoglycemia Famotidine 20 mg 06/22/19 09:00 06/24/19 08:24 Pepcid SLOW IVP 20 mg DAILY WENDI Administration Dextrose/Sodium Chloride 1,000 mls @ 100 mls/hr 06/23/19 07:45 06/24/19 19:24 D5 1/2 Ns IV 1,000 mls .Q10H WENDI Administration Azithromycin 500 mg/ Sodium 250 mls @ 250 mls/hr 06/23/19 21:00 06/24/19 19: 27 Chloride IVPB 250 mls 2100 WENDI Administration Cefepime HCl 1 gm/ Sodium 100 mls @ 200 mls/hr 06/23/19 09:00 06/24/19 08:23 Chloride IVPB 100 mls 0900 WENDI Administration Vancomycin HCl 1.25 gm/ Sodium 250 mls @ 166.667 mls/hr 06/23/19 21:00 22:01 Chloride IVPB 250 mls 2100 WENDI Administration Clindamycin Phosphate/Dextrose 50 mls @ 100 mls/hr 06/25/19 06:00 06/25/19 05 :19 600 mg/ Device IVPB 50 mls Q8HR WENDI Administration Methylprednisolone Sodium Succinate 20 mg 06/23/19 09:00 06/24/19 08:24 Solu-Medrol IVP 20 mg DAILY WENDI Administration Propofol 1,000 mg 06/22/19 00:43 06/24/19 00:53 Diprivan IV 07/22/19 00:43 1,000 mg INF PRN Administration TO ACHIEVE GOAL RASS Protocol - Exam General Appearance: NAD, awake alert Eye: PERRL Neck: no JVD Heart: no murmur, no gallops, no rubs, irregular Respiratory: CTAB, no wheezes, no rales, no ronchi Gastrointestinal: soft, non-tender, non-distended, normal bowel sounds Extremities: no edema Psychiatric - other findings: alert, following commands (squeezing finger in both hands) Hosp A/P - Plan #COVID pneumonia #aspiration pneumonia -inflammatory markers grossly elevated; procalcitonin elevated. more c/w bacterial pneumonia however superimposed COVID likely considering positive test and ground glass opacities with bibasilar airspace disease, which is commonly found in COVID and other viral pneumonias -alert, following commands; RSBI < 105, HD stable, minimal FIO2, PEEP 5; pending ICU evaluation -continue hydroxychloroquine, azithromycin as per MICU - continue cefepime and vancomcyin; added clindamycin for anaerobic coverage, afebrile since addition; pending final culture results -daily SBTs #TU (improving) -ATN based on urine studies; likely due to sepsis -nephrology onboard -continue strict I/O, IVF supplementation #dehydration #chronic hypernatremia -improving, currently 146 -continue IVF and daily BMP remaining management unchanged
[2019-06-25] MEDS: HYDROXYCHLOROQUINE SULFATE 200 MG PO SCH ×2 (08:27→20:42)
[2019-06-25] MEDS: SIMPLE PO SCH ×2 (08:27→20:42)
[2019-06-25] MEDS ORDERED: Potassium Chloride 40 MEQ in Sodium Chloride 0.9% 250 ML 250 ML IVPB SCH (09:00)
[2019-06-25] MEDS: Cefepime 1 GM in Sodium Chloride 0.9% 100 ML IVPB SCH (09:05)
[2019-06-25] MEDS: Famotidine/PF 20 mg/2ml Vial SLOW IVP SCH (09:06)
[2019-06-25] MEDS: methylPREDNISolone Sod Succ 40 MG VIAL IVP SCH (09:07)
[2019-06-25] MEDS: Dextrose 5 %-0.45 % NaCl 1,000 ML IV SCH ×2 (09:08→20:42)
[2019-06-25] MEDS: Dextrose 50% Abboject 50 ML SYRINGE SLOW IVP PRN (09:30)
--- NOTE | 2019-06-25 10:55 | PRG ---
DATE OF SERVICE: 06/25/2019 SUBJECTIVE: Mr. Díaz is an 84-year-old white male, who was admitted for acute respiratory failure, sepsis and followed up by the Renal Service for his acute kidney injury. He has been empirically volume repleted. However, the urine sediment did suggest a superimposed acute tubular necrosis. He is diuresing well overall. His urine output is more than adequate and the renal function over the last few days has dramatically improved. He most likely has a nonoliguric ATN. The plan is to have the patient extubated. Please note that the patient is now DNR. He is currently on empiric IV antibiotics. Serologies for ANCA and WILLIE were done and they were all negative. No acute events noted last night. This morning, he was noted to be more tachycardic and is noted to be shivering. However, after the shivering, the heart rate went down to normal at 90. The patient's blood pressure is 170/103, heart rate 99, O2 saturation 98%. He is still relatively unresponsive and intubated and currently on ventilator support. MEDICATIONS: Medications of 06/27/19 were reviewed. LABORATORY DATA: Laboratories of 06/22/19 WILLIE was negative. ANCA was reported as negative. June 25, 2019; sodium 146, potassium 3.3, chloride 107, carbon dioxide 25, BUN 43, creatinine 1.76, glucose 124, calcium 8.8, magnesium is 2.4. White count 10.4, hemoglobin 11.2. June 24, 2019; chest x-ray showed worsening bilateral airspace disease. ASSESSMENT AND PLAN: 1. Acute kidney injury-most likely from a nonoliguric acute tubular necrosis. He is diuresing well. Renal function is continually improving. There is no indication for any dialytic intervention. Should he need dialysis in the near future, we will rediscuss it with and children since I feel that due to his multiple comorbid problems, he is not a dialysis candidate. Dr. Barton was approached by the relatives 2 days ago due to the fact that he takes care of the patient's relative. Dr. Barton has made mention that this patient is most likely not a dialysis candidate also. 2. COVID-19 infection, supportive care. Currently, on hydroxychloroquine and azithromycin. 3. Pneumonia, on empiric IV antibiotics. 4. Please note, there is no evidence of any vasculitis with this patient. He is on steroids due to diagnosis of PMR. Overall prognosis remains guarded with this patient. I agree with current management. Job ID: [id number] MTDD
--- NOTE | 2019-06-25 14:56 | PRG ---
DATE OF SERVICE: 06/25/2019 SUBJECTIVE: Nurses talked to the Arjun family. They are fixated on steroids for Mr. Díaz for his encephalopathy. It has been explained to them by multiple different providers that he is on intravenous steroids. He is a do not resuscitate patient. OBJECTIVE: Lungs, heart, and abdomen reportedly are unchanged. LABORATORY DATA: White count 10.4, hemoglobin 11.2, platelets . Sodium 146, potassium 3.3, chloride 107, bicarb 25, BUN 43, creatinine 1.76. Intake and outputs . IMPRESSION: 1. Advanced dementia, chronically bedridden. 2. Encephalopathy related to critical illness with underlying dementia. It has been explained to family multiple times that he is on IV steroids and is not waking up. They were fixated on an event several years ago at [facility] where a neurologist recommended steroids, which led to an improvement in his neurological status. I am told that the family says this was related to polymyalgia rheumatica. It is unclear whether or not he had temporal arteritis at that time or not. In any event, his deconditioning and weakened state as well as severe dehydration on presentation are the reason for the intubation. Family wants him to be a do not resuscitate patient they do not want him to be extubated until they can consult with a neurologist. There may be at some point the need for an ethics committee input. Here there is no Neurology available in [facility]. Since he is COVID positive, certainly [facility] are going to take him in transfer. 3. Other problems include acute on chronic renal dysfunction, hypertension, possible coexistent pneumonia. Prognosis is dismal for survival independent of COVID. Job ID: [id number]
--- NOTE | 2019-06-25 15:47 | HP ---
Mr. Díaz's family requested that I contact his neurologist at [facility]. His physician was gracious enough to talk to me by phone. Apparently, Mr. Díaz presented with social withdrawal, decreased activity, and lack of interaction with family several years back with a high sedimentation rate and high C-reactive protein. He was diagnosed with polymyalgia rheumatica. The neurologist I talked to said he only seen him couple of times before. He responded well to steroids, but he also had normal-pressure hydrocephalus, for which he has a shunt. He says Mr. Díaz's course after shunt was improvement, but his decline has been steady in characteristic for people that have advanced normal-pressure hydrocephalus even with a shunt in place. I have reviewed the whole case with his neurologist and at the end of our discussion, his impression was that it was time to proceed forward with comfort care. He informed me that he would try to get a hold of family and let them know what his recommendations were. I have explained to Mr. Díaz's family that he has been on steroids intravenously and I explained that also the neurologist that this change in his mental status is likely related to his critical illness and not the polymyalgia rheumatica. We will proceed forward in accordance with the family's wishes based on their discussion with the neurologist. Job ID: [id number]
[2019-06-25] MEDS: Azithromycin 500 MG in Sodium Chloride 0.9% 250 ML 250 ML IVPB SCH (21:10)
[2019-06-26 04:55] LABS: Anion Gap 16 mmol/L (10-20); BUN (Urea Nitrogen) 42 mg/dL (8.4-25.7); Calc. Creatinine Clearance 32 mL/min (70-130); Calcium 8.5 mg/dL (7.8-10.44); Carbon Dioxide 20 mmol/L (23-31); Chloride 112 mmol/L (98-107); Estimated GFR-MDRD 42; Glucose 115 mg/dL (83-110); Magnesium 2.1 mg/dL (1.6-2.6); Sodium 145 mmol/L (136-145)
[2019-06-26 05:00] LABS: Potassium 2.9 mmol/L (3.5-5.1)
[2019-06-26 05:03] LABS: Band 18 % (5-11); Hemoglobin 11.2 g/dL (14.0-18.0); Lymphocytes 2 % (21-51); MDiff Complete? YES; Mean Corpuscular HGB CONC 33.8 g/dL (32.0-36.0); Mean Corpuscular Hemoglobin 32.6 pg (27.0-31.0); Mean Corpuscular Volume 96.4 fL (78.0-98.0); Mean Platelet Volume 11.5 fL (7.4-10.4); Metamyelocyte 1 % (0-0); Monocytes 1 % (0-10); Neutrophil 78 % (42-75); Nucleated RBC 1 % (0); Platelet Count 100 thou/uL (130-400); Platelet Morphology Comment Appears Decreased; RBC Distribution Width 13.9 % (11.5-14.5); Red Blood Cell (RBC) Count 3.44 mill/uL (4.70-6.10); White Blood Cell (WBC) Count 13.9 thou/uL (4.8-10.8)
[2019-06-26] MEDS: Clindamycin/D5W 600 MG in Premix Bag 1 BAG IVPB SCH (05:21)
[2019-06-26] MEDS: Dextrose 5 %-0.45 % NaCl 1,000 ML IV SCH (05:21)
[2019-06-26 07:11] VITALS: BMI 19.1
[2019-06-26] MEDS ORDERED: Potassium Chloride 40 MEQ in Premix Bag 1 BAG IVPB SCH (07:30)
--- NOTE | 2019-06-26 07:57 | PRG ---
DATE OF SERVICE: 06/26/2019 SUBJECTIVE: Luca Díaz is clinically unchanged. OBJECTIVE: LUNGS: Unchanged. HEART: Unchanged. ABDOMEN: Unchanged. VITAL SIGNS: Blood pressure 166/96, heart rate 97, respiratory rate 25. I talked to the son by phone this morning. proceed with comfort care. I have explained that I do not think he will pass away immediately. Unfortunately, his come up to sit with him. LABORATORY DATA: His white count 13.9, hemoglobin 11.2, and platelets 100,000. Sodium 145, potassium 2.9, chloride 112, bicarb 20, BUN 42, creatinine 1.59. IMPRESSION: 1. 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 2. Polymyalgia rheumatica, on steroids. 3. Respiratory failure secondary to hypotension secondary to severe dehydration, which was result of his severe dementia. 4. Acute on chronic kidney disease that is reasonably stable. 5. Hypokalemia that is not a clinical issue. Postop blood draws. Proceed with comfort care once he is extubated. The son wants to talk to the mom one more time to decide timing of extubation, then we will proceed with comfort care per my discussion with family. Job ID: [id number]
[2019-06-26] MEDS: Morphine 2 MG/ML SYRINGE SLOW IVP PRN ×6 (09:25→18:40)
[2019-06-26] MEDS: methylPREDNISolone Sod Succ 40 MG VIAL IVP SCH (10:48)
--- NOTE | 2019-06-26 13:45 | PDOC.EVN ---
Event Note - Event Note Event Note: Per ICU, plan to transition to comfort measures and terminally extubate at 9am. Did not see patient as per intstructions to avoid unnecessary exposure to COVID.
[2019-06-27] MEDS: Morphine 2 MG/ML SYRINGE SLOW IVP PRN ×3 (04:23→15:36)
[2019-06-27] MEDS: methylPREDNISolone Sod Succ 40 MG VIAL IVP SCH (08:24)
--- NOTE | 2019-06-27 14:49 | PDOC.EVN ---
Event Note - Event Note Event Note: -transitioned to comfort measures. Did not see patient as per intstructions to avoid unnecessary exposure to COVID. -demise imminent.
[2019-06-27] MEDS: Morphine 4 MG/ML VIAL SLOW IVP PRN (20:53)
[2019-06-28] MEDS: Morphine 4 MG/ML VIAL SLOW IVP PRN ×4 (00:27→11:23)
[2019-06-28] MEDS: methylPREDNISolone Sod Succ 40 MG VIAL IVP SCH (08:24)
[2019-06-28 08:49] VITALS: BP 62/42; TEMP 105
--- NOTE | 2019-06-28 18:31 | DIS ---
DATE OF ADMISSION: 06/21/2019 DATE OF DISCHARGE: 06/28/2019 DISCHARGE DIAGNOSES: 1. Polymyalgia rheumatica. 2. Normal-pressure hydrocephalus, status post ventriculoperitoneal shunt. 3. Change in mental status due to acute illness/metabolic encephalopathy. 4. Acute hypoxic respiratory failure. 5. Viral pneumonia. 6. Acute renal failure. 7. Acute electrolyte abnormalities including sodium and potassium. 8. Alzheimer disease. HOSPITAL COURSE: This was an 84-year-old male with end-stage dementia, associated with normal-pressure hydrocephalus, status post stent; polymyalgia rheumatica, on steroid; admitted with respiratory failure secondary to hypotension due to severe hypovolemia due to his severe dementia. The patient also had acute on chronic kidney disease as well as several other electrolyte abnormalities. With several acute comorbidities, his medical prognosis was quite poor. He was transitioned to comfort care. He had acute kidney injury due to nonoliguric acute tubular necrosis. His renal function did improve. However, overall, his prognosis was quite poor. Family opted DNR. The patient had his demise at 1325 hours. PRIMARY CAUSE OF DEMISE: Several acute multiple comorbidities including acute hypoxic respiratory failure due to viral pneumonia, and acute renal failure. SECONDARY CAUSE OF DEMISE: Advanced dementia with normal-pressure hydrocephalus. TIME SPENT: Discharge time less than 30 minutes. Job ID: [id number] [facility]
--- NOTE | 2019-06-30 10:00 | PQF ---
[employer] T[employer]ical Debriefer Officer Crystal Reports Winform ARIANNE Dutta LUIS CARLOS CEE [id number] [place] [id number] CLINICAL DOCUMENTATION CLARIFICATION FORM: POST DISCHARGE Addendum to original discharge summary date: ____ Late entry note date: __ DATE: 06/30/2019 ATTN:LUIS CARLOS CEE Please exercise your independent, professional judgment in responding to the clarification form. Clinical indicators are provided on the bottom of this form for your review Please check appropriate box(s) to clarify if the following diagnosis has been ruled in or ruled out: Severe sepsis [x ] Ruled in diagnosis [ ] Continue to treat [x ] Resolved [ ] Ruled out diagnosis [ ] Cannot rule out diagnosis [ ] Other diagnosis [ ] Unable to determine For continuity of documentation, please document condition throughout progress notes and discharge summary. Thank You. CLINICAL INDICATORS - SIGNS / SYMPTOMS / LABS -Severe sepsis- Consultation, 06/21, Gladys Escobedo MD -Sepsis/pneumonia-on empiric IV antibiotics- Consultation, 06/22, Andres Willoughby MD - Temp: 98.7F on 06/21, 100.8F on 06/22, 105H on 06/27- Vital signs report - RR: 24H on 06/23, 30H on 06/24, 36H on 06/27- - Vital signs report - Pulse: 89 on 06/21, 111H on 06/22, 102H on 06/27-- Vital signs report - WBC: 11.2H on 06/21, 15.5H on 06/23, 13.9H on 06/25- Laboratory report RISK FACTORS - Acute hypoxic respiratory failure- H&P, 06/21, Humberto Paul MD - Viral Pneumonia- DS, 06/27, LUIS CARLOS CEE TREATMENTS - Azithromycin.IV MAY, 06/21 - Vancomycin.IV MAY, 06/21 [employer] Debriefer Officer Crystal Reports Winform Viewer (This form is maintained as a part of the permanent medical record) 2014 [employer]. All Rights Reserved [email or web address]
== END 2019-06-28 14:56 | disposition expired | DRG 870 ==
LOC: CCU 21:00 → UNDOADMIN 21:00 → CCU 22:21 → T4-B 06-26 22:29
PROVIDERS: ADMIT Internal Medicine; ATTEND Internal Medicine
PROC: 0BH17EZ Insertion of Endotracheal Airway into Trachea, Via Natural or Artificial Opening (ICD-10-PCS; principal; 2019-06-21)
PROC: 5A1955Z Respiratory Ventilation, Greater than 96 Consecutive Hours (ICD-10-PCS; 2019-06-21)
PROC: 8E0ZXY6 Isolation (ICD-10-PCS; 2019-06-21)
DX: A41.9 Sepsis, unspecified organism (principal); J96.01 Acute respiratory failure with hypoxia; G93.41 Metabolic encephalopathy; N17.0 Acute kidney failure with tubular necrosis; U07.1 COVID-19; J12.89 Other viral pneumonia; G91.2 (Idiopathic) normal pressure hydrocephalus; E87.0 Hyperosmolality and hypernatremia; Z66 Do not resuscitate; Z51.5 Encounter for palliative care; R65.20 Severe sepsis without septic shock; M35.3 Polymyalgia rheumatica; I95.9 Hypotension, unspecified; E86.0 Dehydration; E87.5 Hyperkalemia; F41.9 Anxiety disorder, unspecified; I12.9 Hypertensive chronic kidney disease with stage 1 through stage 4 chronic kidney disease, or unspecified chronic kidney disease; N18.9 Chronic kidney disease, unspecified; E86.1 Hypovolemia; J45.909 Unspecified asthma, uncomplicated; N40.0 Benign prostatic hyperplasia without lower urinary tract symptoms; R79.89 Other specified abnormal findings of blood chemistry; G30.9 Alzheimer's disease, unspecified; F02.80 Dementia in other diseases classified elsewhere, unspecified severity, without behavioral disturbance, psychotic disturbance, mood disturbance, and anxiety; Z86.73 Personal history of transient ischemic attack (TIA), and cerebral infarction without residual deficits; Z98.2 Presence of cerebrospinal fluid drainage device; Z88.0 Allergy status to penicillin; Z88.8 Allergy status to other drugs, medicaments and biological substances; Z88.1 Allergy status to other antibiotic agents; Z74.01 Bed confinement status
CPT/HCPCS: 36415; 36416; 71045; 80048; 80053; 80202; 81001; 82570; 82728; 82805; 83520; 83735; 84100; 84145; 84300; 85025; 86038; 86140; 86225; 86256; 87449; 87899; 94002; 94003; J0456; J0692; J0696; J1644; J2270; J2704; J2920; J3370; J3480; J3490; J7050; P9047; S0028